=== PATIENT | female | born 1990 | race Caucasian/White ===

== ENCOUNTER → 2023-12-24 08:38 | Outpatient (CLI) | payer BC, SELFPAY | PROVIDERS: PCP Student in an Organized Health Care Education/Training Program; Referring Provider Family Medicine; Visit Provider Family Medicine | DX: Z34.90 Encounter for supervision of normal pregnancy, unspecified, unspecified trimester (principal) | CPT/HCPCS: 36415; 84702 ==

== ENCOUNTER → 2023-12-26 08:12 | Outpatient (CLI) | payer BC, SELFPAY ==
[2023-12-26 10:03] LABS: HCG Quantitative /Beta subunit 684.1 mIU/mL
== END ==
LOC: LAB 08:14
PROVIDERS: PCP Student in an Organized Health Care Education/Training Program; Referring Provider Family Medicine; Visit Provider Family Medicine
DX: Z34.90 Encounter for supervision of normal pregnancy, unspecified, unspecified trimester (principal)
CPT/HCPCS: 36415; 84702

== ENCOUNTER 2024-01-11 17:52 | Emergency (ER) | payer BC, SELFPAY ==
[2024-01-11 18:20] VITALS: BP 111/75; PULSE 85; RESP 20; TEMP 36.6; O2SAT 99; BMI 33.0
--- NOTE | 2024-01-11 18:32 | DI.US.S_ITS ---
PROCEDURE: US OB <= 14 WEEKS FETUS INDICATIONS: Vaginal bleeding and cramping OUTSIDE/PRIOR DATING DATA: Last menstrual period (LMP): 11/22/2023. LMP-based estimated date of delivery (SURJIT): 08/28/2024. First dating scan (date and location): 01/11/2024. Estimated date of delivery (SURJIT) from first dating scan: 6 weeks, 1 day. The calculations are made using the ultrasound SURJIT of 09/04/2024. TECHNIQUE: Real-time scanning was performed of the fetus and maternal pelvic organs, with image documentation. Endovaginal scanning was also performed to better visualize the fetus and maternal ovaries. COMPARISON: None. FINDINGS: Embryo: There is a single intrauterine gestation. A yolk sac is visualized. [place]-rump length measures 0.5 cm corresponding to estimated age of 6 weeks, 1 day. There is a hyperechoic structure abutting the gestational sac which may represent a chorionic bump. Heart rate: 106 Maternal organs: Ovaries are unremarkable. Cervical length is 4.1 cm. IMPRESSION: Single intrauterine gestation with estimated age of 6 weeks, 1 day by crown-rump length. heart rate detected. Query chorionic bump. Preliminary results were provided to ordering provider Dr. Hernadez by photoresist printer at time of imaging completion. Approved by: Diane Caro M.D.,Ph.D. on 01/11/2024 at 21:18
[2024-01-11 19:03] LABS: Add Manual Diff / Slide Review NO; Basophils Absolute Auto 100 /uL (0-100); Basophils Percent Auto 0.4 % (0-2); Eosinophils Absolute Auto 100 /uL (0-450); Hematocrit 40.8 % (36-46); Hemoglobin 13.6 g/dL (12.0-16.0); Lymphocytes Absolute Auto 3100 /uL (1100-4500); Lymphocytes Percent Auto 22.2 % (25-40); Mean Corpuscular HGB Conc 33.4 % (30-36); Mean Corpuscular Hemoglobin 29.6 PG (26-34); Mean Corpuscular Volume 88.5 fL (80-100); Monocytes Absolute Auto 700 /uL (0-900); Neutrophils Absolute Auto 10000 /uL (1500-7000); Neutrophils Percent Auto 71.4 % (50-75); Platelet Count 214 X10^3/uL (150-400); Red Blood Cell Count 4.61 X10^6/uL (4.0-5.2); Red Cell Distribution Width 13.2 % (11.6-14.8); White Blood Cell Count 13.9 X10^3/uL (4.5-11.0)
--- NOTE | 2024-01-11 19:03 | ED.PREGNANCY ---
HPI - General Chief complaint: Vaginal Bleeding Stated complaint: 7 wks /heavy bleeding Time Seen by Provider: 01/11/24 18:32 Source: patient Mode of arrival: Ambulatory Limitations: no limitations History of Present Illness HPI Narrative: at approximately 7 wks gestation presents for vaginal bleeding and pelvic pressure since this afternoon. No documented IUP. 1 elective , 1 miscarriage, no living children. Related Data Home Medications Medication Instructions Recorded Confirmed clonazepam 0.5 mg tablet 0.5 mg PO DAILY 10/20/23 11/05/23 cholecalciferol (vitamin D3) 50 50 mcg PO DAILY 12/31/23 12/31/23 mcg (2,000 unit) capsule magnesium 250 mg tablet 250 mg PO DAILY 12/31/23 12/31/23 vitamin-ferrous sulfate tab PO 12/31/23 12/31/23 27 mg iron-folic acid 0.8 mg tablet Previous Rx's Medication Instructions Recorded hydroxyzine HCl 25 mg tablet 25 mg PO TID PRN anxiety #60 tabs 12/24/23 Allergies Allergy/AdvReac Type Severity Reaction Status Date / Time No Known Drug Allergies Allergy Verified 12/31/23 08:03 Review of Systems Review of Systems Narrative: Negative except as noted above Exam Initial Vital Signs Initial Vital Signs: Vital Signs Temperature 97.9 F 01/11/24 18:20 Pulse Rate 85 01/11/24 18:20 Respiratory Rate 20 01/11/24 18:20 Blood Pressure 111/75 01/11/24 18:20 Pulse Oximetry 99 01/11/24 18:20 Oxygen Delivery Method Room Air 01/11/24 18:20 Const: Awake, alert, no acute distress, nontoxic appearing Cardiac: regular rate, regular rhythm RESP: unlabored, clear bilaterally, no wheezing GI: Soft, nontender, nondistended, no rebound, no guarding Skin: Warm, Dry, intact, no rashes Neuro: AO x3, CN II-XII grossly intact, moves all extremities Course Orders Ordered: ED Orders 01/11/24 18:32 US OB <= 14 weeks fetus Stat 01/11/24 18:49 Complete Blood Count AUTO DIFF Stat Comprehensive Metabolic Panel Stat HCG Quantitative /Beta subunit Stat Type and Screen Stat Vital Signs Vital signs: Vital Signs - 8 hr 01/11/24 18:20 Temperature 97.9 F Pulse Rate 85 Respiratory Rate 20 Blood Pressure 111/75 Pulse Oximetry 99 Oxygen Delivery Method Room Air MDM - OB/Uterine Contractions Differential Diagnosis Differential diagnosis: Likely normal delivery at term, hemorrhage and -induced hypertension Lab Data 01/11/24 18:49 01/11/24 18:49 Labs: Lab Results 01/11/24 Range/Units 18:49 WBC 13.9 H (4.5-11.0) X10^3/uL RBC 4.61 (4.0-5.2) X10^6/uL Hgb 13.6 (12.0-16.0) g/dL Hct 40.8 (36-46) % MCV 88.5 (80-100) fL MCH 29.6 (26-34) PG MCHC 33.4 (30-36) % RDW 13.2 (11.6-14.8) % Plt Count 214 (150-400) X10^3/uL Neut % (Auto) 71.4 (50-75) % Lymph % (Auto) 22.2 L (25-40) % [place] % (Auto) 5.0 (3-14) % Eos % (Auto) 1.0 L (2-4) % Baso % (Auto) 0.4 (0-2) % Neut # (Auto) 31202 H (4685-1665) /uL Lymph # (Auto) 3100 (5831-6743) /uL [place] # (Auto) 700 (0-900) /uL Eos # (Auto) 100 (0-450) /uL Baso # (Auto) 100 (0-100) /uL Sodium 137 (137-145) mmol/L Potassium 3.9 (3.4-5.1) mmol/L Chloride 107 (98-107) mmol/L Carbon Dioxide 23 (22-32) mmol/L BUN 11 (7-17) mg/dL Creatinine 0.39 L (0.52-1.04) mg/dL Estimated GFR > 60 (>60) mL/min BUN/Creatinine Ratio 28.2 H (6-22) Glucose 86 (70-100) mg/dL Calcium 9.8 (8.4-10.2) mg/dL Total Bilirubin 0.4 (0.2-1.3) mg/dL AST 43 H (14-36) IU/L ALT 81 H (<35) IU/L Alkaline Phosphatase 69 (38-126) U/L Total Protein 7.5 (6.3-8.2) g/dL Albumin 4.4 (3.5-5.0) g/dL Globulin 3.1 (1.7-4.1) g/dL Albumin/Globulin Ratio 1.4 (1.0-2.8) HCG, Quant 15341 mIU/mL Blood Type A Positive Antibody Screen Negative Urine Dip Bedside Urine Glucose Negative Bedside Urine Bilirubin - Negative Bedside Urine Ketone - Negative Urine Specific [place] 1.010 Bedside Urine Occult Blood +++ Bedside Urine pH 6 Bedside Urine Protein - Negative Bedside Urine Urobilinogen - Negative Bedside Urine Nitrite - Negative Bedside Urine Leukocytes - Negative Esterase Imaging Data US - OB: Radiologist's Impression: PROCEDURE: US OB <= 14 WEEKS FETUS INDICATIONS: Vaginal bleeding and cramping OUTSIDE/PRIOR DATING DATA: Last menstrual period (LMP): 11/22/2023. LMP-based estimated date of delivery (SURJIT): 08/28/2024. First dating scan (date and location): 01/11/2024. Estimated date of delivery (SURJIT) from first dating scan: 6 weeks, 1 day. The calculations are made using the ultrasound SURJIT of 09/04/2024. TECHNIQUE: Real-time scanning was performed of the fetus and maternal pelvic organs, with image documentation. Endovaginal scanning was also performed to better visualize the fetus and maternal ovaries. COMPARISON: None. FINDINGS: Embryo: There is a single intrauterine gestation. A yolk sac is visualized. [place]-rump length measures 0.5 cm corresponding to estimated age of 6 weeks, 1 day. There is a hyperechoic structure abutting the gestational sac which may represent a chorionic bump. Heart rate: 106 Maternal organs: Ovaries are unremarkable. Cervical length is 4.1 cm. IMPRESSION: Single intrauterine gestation with estimated age of 6 weeks, 1 day by crown-rump length. heart rate detected. Query chorionic bump. Preliminary results were provided to ordering provider Dr. Hernadez by acupressure therapist at time of imaging completion. Approved by: Diane Caro M.D.,Ph.D. on 01/11/2024 at 21:18 MDM Narrative Medical decision making narrative: Vaginal bleeding in early , as of yet no confirmed IUP. No previous records of blood type in her system. Patient is blood type A positive, ultrasound shows single IUP with estimated age of 6 weeks 1 day. There may be a possible chorionic bump, however this is not entirely certain. Patient informed of all lab and imaging findings, recommended pelvic rest until seen and cleared by OBGYN. Discharge Plan Departure Patient Disposition: Home Clinical Impression: Threatened , Type A blood, Rh positive Instructions: DI for Vaginal Bleeding During Activity Restrictions/Additional Instructions: Your ultrasound today showed an intrauterine with a heart rate present. Follow up with your OBGYN. You may continue to experience bleeding. Pelvic rest is recommended until seen by OBGYN Prescriptions: No Action hydroxyzine HCl 25 mg tablet 25 mg PO TID PRN (Reason: anxiety) Qty: 60 2RF clonazepam 0.5 mg tablet 0.5 mg PO DAILY vit-ferrous sulfat-FA 27 mg iron- 0.8 mg tablet PO cholecalciferol (vitamin D3) 50 mcg (2,000 unit) capsule 50 mcg PO DAILY magnesium 250 mg tablet 250 mg PO DAILY Referrals: Ashley Sheldon MD [Primary Care Provider] - Stand Alone Forms: Patient Portal/API
[2024-01-11 19:24] LABS: Alanine Aminotransferase 81 IU/L (<35); Albumin 4.4 g/dL (3.5-5.0); Albumin Globulin Ratio 1.4 (1.0-2.8); Alkaline Phosphatase 69 U/L (38-126); Aspartate Aminotransferase 43 IU/L (14-36); BUN Creatinine Ratio 28.2 (6-22); Bilirubin Total 0.4 mg/dL (0.2-1.3); Blood Urea Nitrogen 11 mg/dL (7-17); Calcium 9.8 mg/dL (8.4-10.2); Carbon Dioxide 23 mmol/L (22-32); Chloride 107 mmol/L (98-107); Estimated Glomerular Filt Rate > 60 mL/min (>60); Globulin 3.1 g/dL (1.7-4.1); Glucose 86 mg/dL (70-100); HEMOLYSIS 43 (0-50); Potassium 3.9 mmol/L (3.4-5.1); Sodium 137 mmol/L (137-145); Total Protein 7.5 g/dL (6.3-8.2)
[2024-01-11 20:05] LABS: HCG Quantitative /Beta subunit 48793 mIU/mL
[2024-01-11 21:30] VITALS: BP 118/75; PULSE 91; RESP 16; O2SAT 95
== END 2024-01-11 21:31 | disposition home or self-care (01) ==
PROVIDERS: Emergency Provider Emergency Medicine; PCP Student in an Organized Health Care Education/Training Program
DX: O20.0 Threatened abortion (principal); Z3A.01 Less than 8 weeks gestation of pregnancy; Z67.10 Type A blood, Rh positive
CPT/HCPCS: 36415; 76801; 76817; 80053; 81003; 84702; 85025; 86850; 86900; 86901; 99283; 99284

== ENCOUNTER → 2024-01-16 08:47 | Outpatient (CLI) | payer BC, SELFPAY ==
[2024-01-16 10:58] LABS: HCG Quantitative /Beta subunit 65693 mIU/mL
== END ==
PROVIDERS: PCP Student in an Organized Health Care Education/Training Program; Referring Provider Family Medicine; Visit Provider Family Medicine
DX: O20.0 Threatened abortion (principal)
CPT/HCPCS: 36415; 84702

== ENCOUNTER → 2024-01-18 07:44 | Outpatient (CLI) | payer BC, SELFPAY ==
[2024-01-18 09:40] LABS: HCG Quantitative /Beta subunit 64073 mIU/mL
== END ==
PROVIDERS: PCP Student in an Organized Health Care Education/Training Program; Referring Provider Family Medicine; Visit Provider Family Medicine
DX: O20.0 Threatened abortion (principal)
CPT/HCPCS: 36415; 84702